=== PATIENT | female | born 1950 | race American Indian/Alaskan Native ===

== ENCOUNTER 2017-10-11 17:57 | Emergency (ER) | payer MEDICARE, MEDICAID ==
[2017-10-11] MEDS: Sodium Chloride 0.9% 10 ML Syringe FLUSH PRN ×2 (19:08→19:28)
[2017-10-11] MEDS ORDERED: Ondansetron 4 MG/2 ML SDV IV ONE (19:19)
[2017-10-11] MEDS ORDERED: Morphine 2 MG/ML Syringe IVPUSH ONE ×2 (19:19→20:17)
[2017-10-11 19:51] LABS: ANION GAP 18.8; CHLORIDE,CL 94 mmol/L (101-111); SODIUM,NA 130 mmol/L (135-145)
--- NOTE | 2017-10-11 19:54 | EDM.PDOC ---
<Sangita Wells - Last Filed: 10/11/17 19:58> ED HPI GENERAL MEDICAL PROBLEM - General Chief Complaint: Lower Extremity Injury/Pain Stated Complaint: BY AMBULANCE Time Seen by Provider: 10/11/17 17:57 Right Hip Pain Score (Numeric/FACES): 10 - Related Data Allergies Allergy/AdvReac Type Severity Reaction Status Date / Time No Known Allergies Allergy Verified 10/11/17 18:08 Home Meds: Home Meds DULoxetine HCl [Duloxetine HCl] 60 mg PO DAILY 01/20/14 [History] Insulin Aspart [NovoLOG] 38 unit SQ TID 01/20/14 [History] Insulin Glarg,Human.Rec.Analog [LantUS] 38 unit SUBCUT BEDTIME 01/20/14 [History ] Lisinopril [Prinivil] 20 mg PO DAILY 01/20/14 [History] Metoprolol Succinate 50 mg PO DAILY 01/20/14 [History] atorvaSTATin [Lipitor] 20 mg PO BEDTIME 01/20/14 [History] Diclofenac Sodium [Voltaren] 75 mg PO BID 01/23/16 [History] Ibuprofen 800 mg PO QID PRN 01/23/16 [History] Omeprazole 20 mg PO DAILY 01/23/16 [History] Pregabalin [Lyrica] 150 mg PO BID 01/23/16 [History] Nitroglycerin [Nitrostat] 0.4 mg SL Q5M 10/20/16 [History] Past Medical History HEENT History: Reports: Impaired Vision Cardiovascular History: Reports: CAD, High Cholesterol, Hypertension Respiratory History: Reports: None Gastrointestinal History: Reports: GERD Genitourinary History: Reports: Diabetic Nephropathy Musculoskeletal History: Reports: Arthritis, Fracture Other Musculoskeletal History: RIGHT FOOT METATARSAL 2, 3, 4 FRACTURE Neurological History: Reports: None Psychiatric History: Reports: Depression Endocrine/Metabolic History: Reports: Diabetes, Type II Hematologic History: Reports: None Immunologic History: Reports: None Oncologic (Cancer) History: Reports: None Dermatologic History: Reports: None - Infectious Disease History Other Infectious Disease History: UNKNOWN HX - Past Surgical History Head Surgeries/Procedures: Reports: None HEENT Surgical History: Reports: None Cardiovascular Surgical History: Reports: Other (See Below) Other Cardiovascular Surgeries/Procedures: Stents Musculoskeletal Surgical History: Reports: Arthroscopic Knee, Other (See Below) Other Musculoskeletal Surgeries/Procedures:: broken ankle and broken toes with surgery Social & Family History - Family History Family Medical History: Noncontributory - Tobacco Use Smoking Status *Q: Current Every Day Smoker Years of Tobacco use: 50 Packs/Tins Daily: 0.7 Used Tobacco, but Quit: No Second Hand Smoke Exposure: No - Caffeine Use Caffeine Use: Reports: Coffee - Recreational Drug Use Recreational Drug Use: No Course - Vital Signs Last Recorded V/S: Last Vital Signs Temp 97 F 10/11/17 20:02 Pulse 126 H 10/11/17 20:02 Resp 16 10/11/17 20:02 BP 149/95 H 10/11/17 20:02 Pulse Ox 100 10/11/17 20:02 - Orders/Labs/Meds Orders: Active Orders 24 hr Category Date Time Status EKG 12 Lead [EKG Documentation Completion] [RC] URGENT Care 10/11/17 20:04 Active Peripheral IV Care [RC] . DIRECTED Care 10/11/17 18:33 Active CULTURE URINE [RM] Stat Lab 10/11/17 19:17 Received Peripheral IV Insertion Adult [OM.PC] Stat Oth 10/11/17 18:32 Ordered Labs: Laboratory Tests 10/11/17 10/11/17 10/11/17 Range/Units 19:08 19:08 19:08 WBC 13.6 H (5.0-10.0) 10^3/uL RBC 4.91 (4.2-5.4) 10^6/uL Hgb 14.6 (12.0-16.0) g/dL Hct 43.2 (37.0-47.0) % MCV 88.0 (80-100) fL MCH 29.7 (27.0-34.0) pg MCHC 33.8 (33.0-35.0) g/dL Plt Count 166 (150-450) 10^3/uL Neut % (Auto) 83.1 H (42.2-75.2) % Lymph % (Auto) 12.1 L (20.5-50.1) % [place] % (Auto) 4.6 (2-8) % Eos % (Auto) 0.1 L (1.0-3.0) % Baso % (Auto) 0.1 (0.0-1.0) % Sodium 130 L (135-145) mmol/L Potassium 2.8 L (3.6-5.0) mmol/L Chloride 94 L (101-111) mmol/L Carbon Dioxide 20.0 L (21.0-31.0) mmol/L Anion Gap 18.8 BUN 14 (7-18) mg/dL Creatinine 0.8 (0.6-1.3) mg/dL Est Cr Clr Drug Dosing 59.73 mL/min Estimated GFR (MDRD) > 60 BUN/Creatinine Ratio 17.50 Glucose 353 H (74-105) mg/dL Calcium 8.8 (8.4-10.2) mg/dl Total Bilirubin 1.3 H (0.2-1.0) mg/dL AST 22 (10-42) IU/L ALT 20 (10-60) IU/L Alkaline Phosphatase 92 (42-121) IU/L Creatine Kinase 215 H (26-174) IU/L Creatine Kinase Index 2.8 H (0-2.4) % CK-MB (CK-2) 6.10 H (0.4-4.7) ng/mL Troponin I (0.00-0.02) ng/ml Total Protein 7.7 (6.7-8.2) g/dl Albumin 3.9 (3.2-5.5) g/dl Globulin 3.8 Albumin/Globulin Ratio 1.03 Urine Color (YELLOW) Urine Appearance (CLEAR) Urine pH (5.0-9.0) Ur Specific [place] (1.005-1.030) Urine Protein (NEGATIVE) Urine Glucose (UA) (NEGATIVE) Urine Ketones (NEGATIVE) Urine Occult Blood (NEGATIVE) Urine Nitrite (NEGATIVE) Urine Bilirubin (NEGATIVE) Urine Urobilinogen (0.2-1.0) mg/dL Ur Leukocyte Esterase (NEGATIVE) Urine RBC /HPF Urine WBC (0-5/HPF) /HPF Ur Epithelial Cells /HPF Urine Bacteria (0-FEW/HPF) /HPF Urine Opiates Screen (NEGATIVE) Ur Oxycodone Screen (NEGATIVE) Urine Methadone Screen (NEGATIVE) Ur Barbiturates Screen (NEGATIVE) U Tricyclic Antidepress (NEGATIVE) Ur Phencyclidine Scrn (NEGATIVE) Ur Amphetamine Screen (NEGATIVE) U Methamphetamines Scrn (NEGATIVE) Urine MDMA Screen (NEGATIVE) U Benzodiazepines Scrn (NEGATIVE) Urine Cocaine Screen (NEGATIVE) U Marijuana (THC) Screen (NEGATIVE) Ethyl Alcohol < 5 mg/dL 10/11/17 10/11/17 10/11/17 Range/Units 19:08 19:17 19:17 WBC (5.0-10.0) 10^3/uL RBC (4.2-5.4) 10^6/uL Hgb (12.0-16.0) g/dL Hct (37.0-47.0) % MCV (80-100) fL MCH (27.0-34.0) pg MCHC (33.0-35.0) g/dL Plt Count (150-450) 10^3/uL Neut % (Auto) (42.2-75.2) % Lymph % (Auto) (20.5-50.1) % [place] % (Auto) (2-8) % Eos % (Auto) (1.0-3.0) % Baso % (Auto) (0.0-1.0) % Sodium (135-145) mmol/L Potassium (3.6-5.0) mmol/L Chloride (101-111) mmol/L Carbon Dioxide (21.0-31.0) mmol/L Anion Gap BUN (7-18) mg/dL Creatinine (0.6-1.3) mg/dL Est Cr Clr Drug Dosing mL/min Estimated GFR (MDRD) BUN/Creatinine Ratio Glucose (74-105) mg/dL Calcium (8.4-10.2) mg/dl Total Bilirubin (0.2-1.0) mg/dL AST (10-42) IU/L ALT (10-60) IU/L Alkaline Phosphatase (42-121) IU/L Creatine Kinase (26-174) IU/L Creatine Kinase Index (0-2.4) % CK-MB (CK-2) (0.4-4.7) ng/mL Troponin I < 0.02 (0.00-0.02) ng/ml Total Protein (6.7-8.2) g/dl Albumin (3.2-5.5) g/dl Globulin Albumin/Globulin Ratio Urine Color Yellow (YELLOW) Urine Appearance Cloudy (CLEAR) Urine pH 6.0 (5.0-9.0) Ur Specific [place] 1.010 (1.005-1.030) Urine Protein 100 H (NEGATIVE) Urine Glucose (UA) 500 H (NEGATIVE) Urine Ketones 15 H (NEGATIVE) Urine Occult Blood Moderate H (NEGATIVE) Urine Nitrite Positive H (NEGATIVE) Urine Bilirubin Negative (NEGATIVE) Urine Urobilinogen 0.2 (0.2-1.0) mg/dL Ur Leukocyte Esterase Small H (NEGATIVE) Urine RBC 5-10 H /HPF Urine WBC Semi-packed H (0-5/HPF) /HPF Ur Epithelial Cells Rare /HPF Urine Bacteria Many H (0-FEW/HPF) /HPF Urine Opiates Screen Negative (NEGATIVE) Ur Oxycodone Screen Negative (NEGATIVE) Urine Methadone Screen Negative (NEGATIVE) Ur Barbiturates Screen Negative (NEGATIVE) U Tricyclic Antidepress Negative (NEGATIVE) Ur Phencyclidine Scrn Negative (NEGATIVE) Ur Amphetamine Screen Negative (NEGATIVE) U Methamphetamines Scrn Negative (NEGATIVE) Urine MDMA Screen Negative (NEGATIVE) U Benzodiazepines Scrn Negative (NEGATIVE) Urine Cocaine Screen Negative (NEGATIVE) U Marijuana (THC) Screen Negative (NEGATIVE) Ethyl Alcohol mg/dL Meds: Medications Discontinued Medications Generic Name Dose Route Start Last Admin Trade Name Anirudh PRN Reason Stop Dose Admin Ceftriaxone Sodium 1 gm 10/11/17 20:07 10/11/17 20:20 Rocephin IVPUSH 10/11/17 20:08 1 gm ONETIME ONE Administration Sodium Chloride 1,000 mls @ 125 mls/hr 10/11/17 20:00 10/11/17 20:00 Normal Saline IV 125 mls/hr ASDIRECTED BENITO Administration Potassium Chloride 10 meq/ 0 mls @ 100 mls/hr 10/11/17 20:00 10/11/17 20:07 Premix IV 10/11/17 20:01 100 mls/hr ONETIME ONE Administration Potassium Chloride Confirm 10/11/17 20:37 10/11/17 20:45 Kcl 10 Meq In Water 100 Ml Administered 10/11/17 20:38 Not Given Dose 100 mls @ as directed .ROUTE .STK-MED ONE Morphine Sulfate 2 mg 10/11/17 19:19 10/11/17 19:25 Morphine IVPUSH 10/11/17 19:20 2 mg ONETIME ONE Administration Morphine Sulfate 2 mg 10/11/17 20:17 10/11/17 20:23 Morphine IVPUSH 10/11/17 20:18 2 mg ONETIME ONE Administration Ondansetron HCl 4 mg 10/11/17 19:19 10/11/17 19:25 Zofran IV 10/11/17 19:20 4 mg ONETIME ONE Administration Sodium Chloride 10 ml 10/11/17 18:32 10/11/17 19:28 Saline Flush FLUSH 10 ml ASDIRECTED PRN Administration Keep Vein Open Departure - Departure Disposition: DC/Tfer to [facility] 02 Clinical Impression: Intertrochanteric fracture, hip, Hypokalemia UTI (urinary tract infection) Qualifiers: Urinary tract infection type: site unspecified Hematuria presence: without hematuria Qualified Code(s): N39.0 - Urinary tract infection, site not specified - Discharge Information Forms: ED Department Discharge, Interfacility Transfer EMTALA - My Orders Last 24 Hours: My Active Orders 10/11/17 19:17 CULTURE URINE [RM] Stat 10/11/17 20:04 EKG 12 Lead [EKG Documentation Completion] [RC] URGENT - Assessment/Plan Last 24 Hours: My Active Orders 10/11/17 19:17 CULTURE URINE [RM] Stat 10/11/17 20:04 EKG 12 Lead [EKG Documentation Completion] [RC] URGENT <Kimber Mann - Last Filed: 10/12/17 02:05> ED HPI GENERAL MEDICAL PROBLEM - General Source of Information: Reports: Patient History Limitations: Reports: No Limitations - History of Present Illness INITIAL COMMENTS - FREE TEXT/NARRATIVE: ED via [facility], Reports falling on stairs yesterday afternoon around 230 when dog jumped up on her while carrying groceries into house. Patient reports family "draged her in the house" and laid her on mattress has been unable to move since , Pain to right hip. Last oral intake yesterday. 1+ pack per day smoker. Diabetic. Location: Reports: Lower Extremity, Right Review of Systems - Review of Systems Review Of Systems: See Below Constitutional: Reports: No Symptoms Eyes: Reports: No Symptoms Ears: Reports: No Symptoms Nose: Reports: No Symptoms Mouth/Throat: Reports: No Symptoms Respiratory: Reports: No Symptoms Cardiovascular: Reports: No Symptoms GI/Abdominal: Reports: No Symptoms Genitourinary: Reports: Incontinence Musculoskeletal: Reports: Leg Pain (right hip) Skin: Reports: No Symptoms, Bruising ED EXAM, GENERAL - Physical Exam Exam: See Below Exam Limited By: No Limitations General Appearance: Alert, Moderate Distress Eye Exam: Bilateral Eye: EOMI Ears: Normal External Exam, Hearing Grossly Normal Nose: Normal Inspection Throat/Mouth: Normal Inspection, Normal Lips Head: Atraumatic, Normocephalic Neck: Normal Inspection, Full Range of Motion Respiratory/Chest: No Respiratory Distress, Normal Breath Sounds, Crackles ( fine crackles bases, clear with cough) Cardiovascular: Normal Peripheral Pulses, Regular Rate, Rhythm, Tachycardia Peripheral Pulses: 2+: Dorsalis Pedis (L) GI/Abdominal: Normal Bowel Sounds, Soft, Other (incontinent stool and urine, jet area excoriated) Back Exam: Decreased Range of Motion, Paraspinal Tenderness (lumbar) Extremities: Leg Pain (right hip pain with movement posterior bruising upper thigh) Neurological: Alert, Oriented, Normal Cognition Skin Exam: Warm, Dry, Rash (jet), Other (hands fingers tobacco stained) Course - Radiology Interpretation Free Text/Narrative:: Right intratrochanteric fracture - Re-Assessments/Exams Free Text/Narrative Re-Assessment/Exam: 10/11/17 20:23 Dr. Morrison accepting of patient in transfer, [facility] updated with current lab studies. Departure - Departure Time of Disposition: 20:12 Condition: Undetermined
[2017-10-11] MEDS ORDERED: Sodium Chloride 0.9% 1,000 ML IV SCH (20:00)
[2017-10-11] MEDS ORDERED: Potassium Chloride 10 MEQ in Premix Bag 2 BAG IV ONE (20:00)
[2017-10-11 20:04] VITALS: BP 149/95
[2017-10-11] MEDS ORDERED: cefTRIAXone 1 GM Vial IVPUSH ONE (20:07)
[2017-10-11] MEDS ORDERED: Potassium Chloride 100 ML ONE (20:37)
--- NOTE | 2017-10-13 15:40 | EKG ---
10/11/2017 - GRACIELA HALEY - FINDINGS: This 12-lead EKG shows a sinus tachycardia with a ventricular rate of 152. Normal axis. Left anterior fascicular block. No acute changes. [facility] /[id number]
== END 2017-10-11 20:47 ==
LOC: DL.ED 17:57
DX: S72.141A Displaced intertrochanteric fracture of right femur, initial encounter for closed fracture (principal); N39.0 Urinary tract infection, site not specified; E87.6 Hypokalemia; F17.210 Nicotine dependence, cigarettes, uncomplicated; I10 Essential (primary) hypertension; I25.10 Atherosclerotic heart disease of native coronary artery without angina pectoris; E78.00 Pure hypercholesterolemia, unspecified; E11.21 Type 2 diabetes mellitus with diabetic nephropathy; K21.9 Gastro-esophageal reflux disease without esophagitis; F32.9 Major depressive disorder, single episode, unspecified; Z95.5 Presence of coronary angioplasty implant and graft; Z79.4 Long term (current) use of insulin; Z79.899 Other long term (current) drug therapy; W10.8XXA Fall (on) (from) other stairs and steps, initial encounter; Y92.009 Unspecified place in unspecified non-institutional (private) residence as the place of occurrence of the external cause
CPT/HCPCS: 36415; 73502; 80053; 80305; 81001; 82550; 82553; 84484; 85025; 87086; 87088; 87186; 93005; 96365; 96368; 96374; 96375; 99285; G0480; J0696; J2270; J2405; J3480; J7030; J7050; 93010; 99284

== ENCOUNTER 2018-11-21 15:11 | Emergency (ER) | payer MEDICAID, MEDICARE, OTHER ==
[2018-11-21] MEDS ORDERED: Sodium Chloride 0.9% 10 ML Syringe FLUSH PRN (16:02)
[2018-11-21] MEDS ORDERED: Insulin Regular, Human 100 Units/ML 3 ML Vial IV ONE (16:57)
[2018-11-21] MEDS ORDERED: Sodium Chloride 0.9% 1,000 ML IV ONE (17:04)
--- NOTE | 2018-11-21 18:50 | EDM.PDOC ---
"Scribed by Jessica Story 11/21/18 [id number] for Sangita Wells NP <Sangita Wells - Last Filed: 11/21/18 18:49> ED HPI GENERAL MEDICAL PROBLEM - General Chief Complaint: Diabetic Complaint Stated Complaint: AMBULANCE Time Seen by Provider: 11/21/18 15:32 Source of Information: Reports: Patient, EMS, EMS Notes Reviewed, RN, RN Notes Reviewed History Limitations: Reports: No Limitations - History of Present Illness INITIAL COMMENTS - FREE TEXT/NARRATIVE: Patient presents to ER by [facility] with complaint of high blood sugar. Patient states that she does not check her blood sugars at home regularly. She states that she feels fine at this time. She is complaining of right lower leg pain. She says that she can bare weight but cannot walk. She has tried a brace without relieve. Patient states she fell to her knees about a week ago and has been having pain since then. Onset: Sudden Right Knee Pain Score (Numeric/FACES): 8 - Related Data Allergies Allergy/AdvReac Type Severity Reaction Status Date / Time No Known Allergies Allergy Verified 11/21/18 15:26 Home Meds: Home Meds DULoxetine HCl [Duloxetine HCl] 60 mg PO DAILY 01/20/14 [History] Insulin Aspart [NovoLOG] 35 unit SQ BID 01/20/14 [History] Metoprolol Succinate 25 mg PO DAILY 01/20/14 [History] atorvaSTATin [Lipitor] 20 mg PO BEDTIME 01/20/14 [History] Ibuprofen 800 mg PO QID PRN 01/23/16 [History] Omeprazole 20 mg PO DAILY 01/23/16 [History] Pregabalin [Lyrica] 150 mg PO BID 01/23/16 [History] Nitroglycerin [Nitrostat] 0.4 mg SL Q5M 10/20/16 [History] Aspirin [Adult Low Dose Aspirin EC] 81 mg PO DAILY 01/09/18 [History] Cholecalciferol (Vitamin D3) [Vitamin D3] 1,000 unit PO DAILY 01/09/18 [History] Cyanocobalamin (Vitamin B-12) [B-12] 1,000 mcg PO DAILY 01/09/18 [History] Dextrose [Glucose] 4 tab PO ASDIRECTED PRN 01/09/18 [History] Folic Acid 1 mg PO DAILY 01/09/18 [History] Gabapentin [Neurontin] 100 mg PO TID 01/09/18 [History] Insulin Detemir [Levemir Flextouch] 45 unit INJECT BEDTIME 01/09/18 [History] Lisinopril 2.5 mg PO DAILY 01/09/18 [History] hydrOXYzine HCl [hydrOXYzine] 25 mg PO BEDTIME PRN 01/09/18 [History] traMADol [Ultram] 50 mg PO BID PRN 01/09/18 [History] Past Medical History HEENT History: Reports: Impaired Vision Cardiovascular History: Reports: CAD, High Cholesterol, Hypertension Respiratory History: Reports: None Gastrointestinal History: Reports: GERD Genitourinary History: Reports: Diabetic Nephropathy Musculoskeletal History: Reports: Arthritis, Fracture Other Musculoskeletal History: RIGHT FOOT METATARSAL 2, 3, 4 FRACTURE Neurological History: Reports: None Psychiatric History: Reports: Depression Endocrine/Metabolic History: Reports: Diabetes, Type II Hematologic History: Reports: None Immunologic History: Reports: None Oncologic (Cancer) History: Reports: None Dermatologic History: Reports: None - Infectious Disease History Other Infectious Disease History: UNKNOWN HX - Past Surgical History Head Surgeries/Procedures: Reports: None HEENT Surgical History: Reports: None Cardiovascular Surgical History: Reports: Other (See Below) Other Cardiovascular Surgeries/Procedures: Stents Musculoskeletal Surgical History: Reports: Arthroscopic Knee, Other (See Below) Other Musculoskeletal Surgeries/Procedures:: broken ankle and broken toes with surgery Social & Family History - Family History Family Medical History: Noncontributory - Caffeine Use Caffeine Use: Reports: Coffee Course - Vital Signs Last Recorded V/S: Last Vital Signs Temp 97.4 F 11/21/18 19:47 Pulse 70 11/21/18 19:47 Resp 16 11/21/18 19:47 BP 165/72 H 11/21/18 19:47 Pulse Ox 96 11/21/18 19:47 - Orders/Labs/Meds Orders: Active Orders 24 hr Category Date Time Status Blood Glucose Check, Bedside [RC] ONETIME Care 11/21/18 16:03 Active Blood Glucose Check, Bedside [RC] ONETIME Care 11/21/18 17:53 Active Peripheral IV Care [RC] . DIRECTED Care 11/21/18 16:03 Active Knee 3V Rt [CR] Urgent Exams 11/21/18 18:22 Taken Peripheral IV Insertion Adult [OM.PC] Stat [facility] 11/21/18 16:03 Ordered Labs: Laboratory Tests 11/21/18 11/21/18 11/21/18 Range/Units 16:18 16:18 16:18 WBC 7.4 (5.0-10.0) 10^3/uL RBC 4.76 (4.2-5.4) 10^6/uL Hgb 13.7 (12.0-16.0) g/dL Hct 41.7 (37.0-47.0) % MCV 87.6 (80-100) fL MCH 28.8 (27.0-34.0) pg MCHC 32.9 L (33.0-35.0) g/dL Plt Count 291 D (150-450) 10^3/uL Neut % (Auto) 60.7 (42.2-75.2) % Lymph % (Auto) 30.0 (20.5-50.1) % Miner % (Auto) 5.9 (2-8) % Eos % (Auto) 3.0 (1.0-3.0) % Baso % (Auto) 0.4 (0.0-1.0) % D-Dimer, Quantitative 1690 H (0-400) ng/mL Sodium 129 L (135-145) mmol/L Potassium 4.0 (3.6-5.0) mmol/L Chloride 91 L (101-111) mmol/L Carbon Dioxide 25.0 (21.0-31.0) mmol/L Anion Gap 17.0 BUN 30 H (7-18) mg/dL Creatinine 1.1 (0.6-1.3) mg/dL Est Cr Clr Drug Dosing 42.85 mL/min Estimated GFR (MDRD) 50 BUN/Creatinine Ratio 27.27 Glucose 546 H* (74-105) mg/dL POC Glucose (70-105) mg/dl Calcium 9.4 (8.4-10.2) mg/dl Total Bilirubin 0.7 (0.2-1.0) mg/dL AST 18 (10-42) IU/L ALT 13 (10-60) IU/L Alkaline Phosphatase 110 (42-121) IU/L Total Protein 8.1 (6.7-8.2) g/dl Albumin 4.1 (3.2-5.5) g/dl Globulin 4.0 Albumin/Globulin Ratio 1.03 Urine Color (YELLOW) Urine Appearance (CLEAR) Urine pH (5.0-9.0) Ur Specific [place] (1.005-1.030) Urine Protein (NEGATIVE) Urine Glucose (UA) (NEGATIVE) Urine Ketones (NEGATIVE) Urine Occult Blood (NEGATIVE) Urine Nitrite (NEGATIVE) Urine Bilirubin (NEGATIVE) Urine Urobilinogen (0.2-1.0) mg/dL Ur Leukocyte Esterase (NEGATIVE) 11/21/18 11/21/18 11/21/18 Range/Units 18:22 19:09 19:49 WBC (5.0-10.0) 10^3/uL RBC (4.2-5.4) 10^6/uL Hgb (12.0-16.0) g/dL Hct (37.0-47.0) % MCV (80-100) fL MCH (27.0-34.0) pg MCHC (33.0-35.0) g/dL Plt Count (150-450) 10^3/uL Neut % (Auto) (42.2-75.2) % Lymph % (Auto) (20.5-50.1) % Miner % (Auto) (2-8) % Eos % (Auto) (1.0-3.0) % Baso % (Auto) (0.0-1.0) % D-Dimer, Quantitative (0-400) ng/mL Sodium (135-145) mmol/L Potassium (3.6-5.0) mmol/L Chloride (101-111) mmol/L Carbon Dioxide (21.0-31.0) mmol/L Anion Gap BUN (7-18) mg/dL Creatinine (0.6-1.3) mg/dL Est Cr Clr Drug Dosing mL/min Estimated GFR (MDRD) BUN/Creatinine Ratio Glucose (74-105) mg/dL POC Glucose 357 H 328 H (70-105) mg/dl Calcium (8.4-10.2) mg/dl Total Bilirubin (0.2-1.0) mg/dL AST (10-42) IU/L ALT (10-60) IU/L Alkaline Phosphatase (42-121) IU/L Total Protein (6.7-8.2) g/dl Albumin (3.2-5.5) g/dl Globulin Albumin/Globulin Ratio Urine Color Light yellow (YELLOW) Urine Appearance Clear (CLEAR) Urine pH 7.0 (5.0-9.0) Ur Specific [place] 1.010 (1.005-1.030) Urine Protein Negative (NEGATIVE) Urine Glucose (UA) 500 H (NEGATIVE) Urine Ketones Negative (NEGATIVE) Urine Occult Blood Negative (NEGATIVE) Urine Nitrite Negative (NEGATIVE) Urine Bilirubin Negative (NEGATIVE) Urine Urobilinogen 0.2 (0.2-1.0) mg/dL Ur Leukocyte Esterase Negative (NEGATIVE) Meds: Medications Discontinued Medications Generic Name Dose Route Start Last Admin Trade Name Freq PRN Reason Stop Dose Admin Sodium Chloride 1,000 mls @ 999 mls/hr 11/21/18 17:04 11/21/18 15:17 Normal Saline IV 11/21/18 18:04 999 mls/hr .BOLUS ONE Administration Insulin Human Regular 10 unit 11/21/18 16:57 11/21/18 17:05 Humulin R IV 11/21/18 16:58 10 units ONETIME ONE Administration Sodium Chloride 10 ml 11/21/18 16:02 Saline Flush FLUSH ASDIRECTED PRN Keep Vein Open Departure - Departure Disposition: Home, Self-Care 01 Clinical Impression: Hyperglycemia, IDDM (insulin dependent diabetes mellitus), Right medial knee pain Fall at home Qualifiers: Encounter type: initial encounter Qualified Code(s): W19.XXXA - Unspecified fall, initial encounter Contusion of right lower extremity Qualifiers: Encounter type: initial encounter Qualified Code(s): S80.11XA - Contusion of right lower leg, initial encounter - Discharge Information Instructions: Knee Pain, Adult, Joint Pain, [id number] Referrals: Saturnino Montgomery MD [Primary Care Provider] - Forms: ED Department Discharge Additional Instructions: Aspirin daily as previously ordered knee brace use walker clinic follow up this week, urgent follow up if any difficulty breathing or chest pain tylenol 500mg every 4 hours as needed for discomfort monitor blood sugars <Jacquie Garcia - Last Filed: 11/21/18 19:28> Social & Family History - Family History Family Medical History: Noncontributory - Tobacco Use Smoking Status *Q: Current Every Day Smoker Tobacco Use Within Last Twelve Months: Cigarettes Packs/Tins Daily: 1 - Alcohol Use Alcohol Use History: Yes Alcohol Use Frequency: Monthly ED ROS GENERAL - Review of Systems Review Of Systems: See Below Constitutional: Reports: No Symptoms HEENT: Reports: No Symptoms Respiratory: Denies: Shortness of Breath, Wheezing Cardiovascular: Denies: Chest Pain, Dyspnea on Exertion Endocrine: Reports: High Glucose (does not regularily check her blood sugar) GI/Abdominal: Denies: Abdominal Pain, Black Stool, Bloody Stool, Constipation, Diarrhea, Nausea, Vomiting : Denies: Dysuria, Hematuria, Urgency Musculoskeletal: Reports: Leg Pain (Right ) Skin: Reports: No Symptoms Neurological: Reports: No Symptoms Psychiatric: Reports: No Symptoms Immunologic: Reports: No Symptoms ED EXAM GENERAL NO PERIP PULSE - Physical Exam Exam: See Below General Appearance: Alert, No Apparent Distress Eye Exam: Bilateral Eye: EOMI, Normal Inspection, PERRL Ears: Normal External Exam, Hearing Grossly Normal Nose: Normal Inspection Throat/Mouth: Normal Inspection. No: Normal Teeth (Poor dentition) Head: Atraumatic, Normocephalic Neck: Normal Inspection, Supple, Full Range of Motion Respiratory/Chest: No Respiratory Distress, Crackles (lower lung bases bilaterally) Cardiovascular: Regular Rate, Rhythm GI/Abdominal: Normal Bowel Sounds, Soft, Non-Tender Extremities: Normal Range of Motion, Normal Capillary Refill, Pedal Edema (on right), Joint Swelling (mild swelling in right ankle compared to left. ), Jacinta 's Sign (on right), Leg Pain (on right to palpation of right calf muscle), Other (A [id number] hematoma is developing on the right leg. Old surgical scars noted on medial and lateral right ankle along with 2 and 3rd metatarsals on right foot.). No: Increased Warmth Neurological: Alert, Oriented, Normal Cognition Skin Exam: Warm, Dry, No Rash Departure - Departure Time of Disposition: 04:30 <Kimber Mann - Last Filed: 11/21/18 21:07> ED EXAM GENERAL NO PERIP PULSE - Physical Exam Exam Limited By: No Limitations Psychiatric: Normal Affect Skin Exam: Ecchymosis (faint green anterior right wong) Course - Radiology Interpretation Free Text/Narrative:: EXAM: XR Right Knee, 3 Views EXAM DATE/TIME: 11/21/2018 6:26 PM CLINICAL HISTORY: 68 years old, female; Pain; Knee; Right; Patient HX: RT knee pain TECHNIQUE: XR Right knee 3 views. COMPARISON: No relevant prior studies available. FINDINGS: Bones/joints: Partially visualized intramedullary femoral nail with 2 distal screws. No definite hardware complication. No fracture or dislocation. Soft tissues: Mild superficial soft tissue edema along the medial aspect of the knee. IMPRESSION: No acute abnormality. Mild superficial soft tissue edema along the medial aspect of the knee. Thank you for allowing us to participate in the care of your patient. Name: GRACIELA HALEY Age: 68Years F Date: 11/21/2018 SSN: -- : [id number] Study: US DUPLEX EXTREM VEINS [employer] Requesting Physician: Sangita Wells Images: 28 Addl Studies: Provided Clinical History: Contrast: Without Contrast Medium: Contrast Amount: Contrast Method: Page 1 of 2 EXAM: US Duplex Right Lower Extremity Veins, Limited EXAM DATE/TIME: 11/21/2018 5:53 PM CLINICAL HISTORY: 68 years old, female; Abnormal findings; Abnormal lab test; Elevated d-dimer; Prior surgery; Surgery date: 6+ months; Surgery type: RT hip surgery 1 year ago TECHNIQUE: Real-time Duplex ultrasound of the Right Lower Extremity with 2-D gayle scale, color Doppler flow and spectral waveform analysis. Limited exam was focused on the right lower extremity veins. COMPARISON: No relevant prior studies available. FINDINGS: Right deep veins: Unremarkable. The common femoral, femoral, proximal profunda femoral and popliteal veins are patent without thrombus. Normal Doppler waveforms. Normal compressibility and/or augmentation response. Right superficial veins: Unremarkable. Saphenofemoral junction is patent without thrombus. Soft tissues: Unremarkable. IMPRESSION: No acute findings. No evidence of deep vein thrombosis. Thank you for allowing us to participate in the care of your patient. GRACIELA HALEY | Final Radiology Report CONFIDENTIALITY STATEMENT This report is intended only for use by the referring physician, and only in accordance with law. If you received this in error, call [phone]. Page 2 of 2 Dictated and Authenticated by: Amber Lundberg MD 11/21/2018 7:08 PM Central Time ([place] & [place]) Departure - Departure Condition: Good - Discharge Information *PRESCRIPTION DRUG MONITORING PROGRAM REVIEWED*: No *COPY OF PRESCRIPTION DRUG MONITORING REPORT IN PATIENT VAMSI: No I have read and agree with the documentation that has been completed regarding this visit. By signing this record, I attest that the documentation was completed in my physical presence and is an accurate record of the encounter."
[2018-11-21 19:54] VITALS: BP 165/72
== END 2018-11-21 19:53 | disposition home or self-care (01) ==
LOC: DL.ED 15:11
DX: E11.65 Type 2 diabetes mellitus with hyperglycemia (principal); S80.11XA Contusion of right lower leg, initial encounter; E11.21 Type 2 diabetes mellitus with diabetic nephropathy; F17.210 Nicotine dependence, cigarettes, uncomplicated; K21.9 Gastro-esophageal reflux disease without esophagitis; F32.9 Major depressive disorder, single episode, unspecified; I10 Essential (primary) hypertension; E78.00 Pure hypercholesterolemia, unspecified; Z79.899 Other long term (current) drug therapy; Z79.4 Long term (current) use of insulin; Z79.82 Long term (current) use of aspirin; W19.XXXA Unspecified fall, initial encounter
CPT/HCPCS: 36415; 73562-RT; 80053; 81003; 82962; 85025; 85379; 93971; 96374; 99284; J1815-GY; J7030

== ENCOUNTER 2022-05-24 15:25 | Emergency (ER) | payer MEDICARE, MEDICAID ==
[2022-05-24 15:42] VITALS: BP 166/84; PULSE 79
[2022-05-24 16:29] LABS: ANION GAP 10.6 mEq/L (7-13); CHLORIDE,CL 105 mmol/L (98-107); SODIUM,NA 143 mmol/L (136-145)
[2022-05-24 16:35] LABS: ESTIMATED GFR 59 mL/min (>=60)
== END 2022-05-24 17:36 | disposition home or self-care (01) ==
LOC: DL.ED 15:25
DX: N30.01 Acute cystitis with hematuria (principal); I25.10 Atherosclerotic heart disease of native coronary artery without angina pectoris; I10 Essential (primary) hypertension; E11.40 Type 2 diabetes mellitus with diabetic neuropathy, unspecified; Z79.899 Other long term (current) drug therapy; Z79.4 Long term (current) use of insulin; Z79.82 Long term (current) use of aspirin; Z79.84 Long term (current) use of oral hypoglycemic drugs; Z20.822 Contact with and (suspected) exposure to COVID-19
CPT/HCPCS: 36415; 80053; 81001; 82947; 83735; 85025; 87086; 87088; 87186; 99284; 99285; U0002

== ENCOUNTER 2022-06-08 12:51 | Emergency (ER) | payer MEDICARE, MEDICAID ==
[2022-06-08] MEDS ORDERED: Acetaminophen/oxyCODONE 325-5 MG Tab PO ONE ×2 (12:52→16:18)
[2022-06-08 15:00] VITALS: BP 156/75; PULSE 66
[2022-06-08] MEDS ORDERED: Ondansetron 4 MG Tab.DIS PO ONE (16:18)
[2022-06-08 17:46] LABS: AMPHETAMINES,URINE POSITIVE (NEGATIVE); BARBITURATES,URINE NEGATIVE (NEGATIVE); BENZODIAZEPINE,URINE NEGATIVE (NEGATIVE); MDMA (ECSTASY), URINE NEGATIVE (NEGATIVE); METHADONE,URINE NEGATIVE (NEGATIVE); METHAMPHETAMINES,URINE NEGATIVE (NEGATIVE); OPIATES,URINE NEGATIVE (NEGATIVE); OXYCODONE,URINE NEGATIVE (NEGATIVE); PHENCYCLIDINE,URINE NEGATIVE (NEGATIVE); TCA,URINE NEGATIVE (NEGATIVE)
[2022-06-08] MEDS ORDERED: predniSONE 20 MG Tab PO ONE (19:27)
[2022-06-08] MEDS ORDERED: Acetaminophen/oxyCODONE 325-5 MG Tab ONE (19:46)
== END 2022-06-08 19:52 | disposition home or self-care (01) ==
LOC: DL.ED 12:51
DX: S32.020A Wedge compression fracture of second lumbar vertebra, initial encounter for closed fracture (principal); I25.10 Atherosclerotic heart disease of native coronary artery without angina pectoris; E78.00 Pure hypercholesterolemia, unspecified; I10 Essential (primary) hypertension; K21.9 Gastro-esophageal reflux disease without esophagitis; E11.21 Type 2 diabetes mellitus with diabetic nephropathy; Z79.899 Other long term (current) drug therapy; Z79.4 Long term (current) use of insulin; W01.0XXA Fall on same level from slipping, tripping and stumbling without subsequent striking against object, initial encounter
CPT/HCPCS: 72100; 72131; 80305; 81003; 99284; A9270; J7512